=== PATIENT | female | born 1970 | race Caucasian/White ===

== ENCOUNTER → 2020-05-29 12:17 | Outpatient (CLI) | payer OTHER, MEDICAID, SELFPAY ==
[2020-05-29] MEDS: COVID-19 VACC #1, MRNA(MOD) 100 MCG/0.5 ML VIAL IM (12:27)
== END ==
PROVIDERS: Visit Provider Internal Medicine
DX: Z23 Encounter for immunization (principal)
CPT/HCPCS: 0011A; 91301

== ENCOUNTER → 2020-06-26 11:57 | Outpatient (CLI) | payer OTHER, MEDICAID, SELFPAY ==
[2020-06-26] MEDS: COVID-19 VACC #2, MRNA(MOD) 100 MCG/0.5 ML VIAL IM (12:04)
== END ==
PROVIDERS: Visit Provider Internal Medicine
DX: Z23 Encounter for immunization (principal)
CPT/HCPCS: 0012A; 91301